=== PATIENT | female | born 1960 ===

== ENCOUNTER 2018-10-27 16:41 | Emergency (ER) | payer SELFPAY ==
[2018-10-27] MEDS ORDERED: Diphtheria,Pertussis(Acell),Tetanus Vaccine 0.5 ML SDV IM ONE (17:28)
[2018-10-27] MEDS ORDERED: Bacitracin Oint 1 GM U/D Packet TOP ONE (17:29)
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
== END 2018-10-27 18:08 | disposition home or self-care (01) ==
LOC: JP.ED 16:41
DX: S81.031A Puncture wound without foreign body, right knee, initial encounter (principal); S60.312A Abrasion of left thumb, initial encounter; Z23 Encounter for immunization; V49.60XA Unspecified car occupant injured in collision with unspecified motor vehicles in traffic accident, initial encounter; Z88.8 Allergy status to other drugs, medicaments and biological substances; Z79.899 Other long term (current) drug therapy
CPT/HCPCS: 90471; 90715; 99282; 99283-25